=== PATIENT | female | born 1985 | race Two or more races ===

== ENCOUNTER 2020-11-08 09:02 | Emergency (ER) | payer MEDICAID ==
[~2020-11-08] VITALS: Ht 170.2 cm; Wt 61.0 kg
[2020-11-08 10:31] LABS: BASOPHILS % 0.7 % (0.0-2.0); EOSINOPHILS % 2.3 % (0.0-5.0); HEMATOCRIT. 39.6 % (36.0-48.0); HEMOGLOBIN. 13.3 g/dL (12.0-16.0); LYMPHOCYTES % 37.5 % (20.0-50.0); MEAN CORPUSCULAR HEMOGLOBIN 29.7 pg (28.0-32.0); MEAN PLATELET VOLUME 7.2 fl (7.4-10.4); MONOCYTES % 9.1 % (2.0-8.0); NEUTROPHILS % 50.4 % (40.0-76.0); PLATELET 291 x1000/uL (130-400); RED CELL DISTRIBUTION WIDTH 13.1 % (11.6-14.6)
[2020-11-08 10:35] LABS: CLARITY URINE CLOUDY (CLEAR); COLOR URINE YELLOW (YELLOW); KETONES URINE NEGATIVE (NEGATIVE); LEUKOCYTE ESTERASE URINE TRACE (NEGATIVE); NITRITE URINE NEGATIVE (NEGATIVE); OCCULT BLOOD URINE NEGATIVE (NEGATIVE); PH URINE 5.5 (4.5-8.0); PROTEIN URINE NEGATIVE (NEGATIVE)
[2020-11-08 10:39] LABS: CHLORIDE 104 mEq/L (98-107)
[2020-11-08 11:04] LABS: HCG SCREEN NEGATIVE
[2020-11-08] MEDS ORDERED: PENICILLIN G BENZATHINE 2,400,000 UNITS/4ML SYR IM SCH (13:30)
[2020-11-08] MEDS ORDERED: PENICILLIN G BENZATHINE 2,400,000 UNITS/4ML SYR IM ONE (13:30)
[2020-11-08 13:48] VITALS: BP 129/86
== END 2020-11-08 13:49 | disposition home or self-care (01) ==
LOC: ER 09:02
DX: A53.9 Syphilis, unspecified (principal); N73.9 Female pelvic inflammatory disease, unspecified; R00.0 Tachycardia, unspecified; F15.10 Other stimulant abuse, uncomplicated; Z59.0 Homelessness
CPT/HCPCS: 36415; 76830; 76856; 80053; 81003; 81025; 84703; 85025; 86592; 86593; 86780; 86850; 86900; 86901; 87210; 87591; 93005; 96372; 99285; J0561

== ENCOUNTER 2022-11-14 01:04 | Emergency (ER) | payer MEDICAID ==
[~2022-11-14] VITALS: Ht 167.6 cm; Wt 59.0 kg
[2022-11-14 01:14] VITALS: BP 132/80
== END 2022-11-14 10:51 | disposition left against medical advice (07) ==
LOC: ER 01:41
DX: Z53.21 Procedure and treatment not carried out due to patient leaving prior to being seen by health care provider (principal)